=== PATIENT | female | born 1950 | race Caucasian/White ===

== ENCOUNTER → 2017-05-06 | Outpatient (CLI) | payer OTHER | LOC: FIMAGING 15:05 | PROVIDERS: ATTEND Physical Medicine & Rehabilitation | DX: Z96.643 Presence of artificial hip joint, bilateral (principal); M76.892 Other specified enthesopathies of left lower limb, excluding foot; M76.02 Gluteal tendinitis, left hip; M25.452 Effusion, left hip; M51.36 Other intervertebral disc degeneration, lumbar region ==